=== PATIENT | female | born 1960 | race Hispanic/Latino ===

== ENCOUNTER → 2017-02-05 | Outpatient (CLI) | payer MEDICAID ==
[~2017-02-05] MED LIST: BUDE6HFA IH; CITA20TA4 PO; DCS100C PO; DICL75TA2 PO; FERR-57 PO; FISH1CAP15 PO; GBPN300C PO; GLIM4TAB PO; GLUC-165 PO; HYDR-34 PO; IBP600T1 PO; IBP800T PO; INSU100I17 SQ; LEVE1U SQ; LEVO500T78 PO; LISI-593 PO; MELO-198 PO; METH4TAB PO; MULT1TAB12 PO; OMEP20CA12 PO; OMEP20TA2 PO; PIOG30TA25 PO; SLMFT1E INH; SULF1TAB35 PO; SUMA100T2 PO; TRAM50TA2 PO; [UNRECOGNIZED DRUG - OTHER] PO
--- NOTE | 2017-02-08 13:23 | Diagnostic Imaging Report ---
Bilateral screening mammogram 2D views with tomosynthesis The current study was also evaluated with a Computer Aided Detection (CAD) system. Indication: Screening. No current complaints stated on the questionnaire. COMPARISON: 01/22/2016. Findings: The breasts are composed of scattered fibroglandular densities. Benign-appearing calcifications are seen. Allowing for technique and positional differences, no suspicious change is seen. IMPRESSION: No significant change. ACR BI-RADS Category 2: Benign findings. Result letter will be mailed to the patient. Note: At least 10% of breast cancer is not imaged by mammography. Dictated by: Dictated on workstation # [id number]
== END ==
LOC: RAD 14:30
PROVIDERS: ATTEND Nurse Practitioner Family
DX: Z12.31 Encounter for screening mammogram for malignant neoplasm of breast (principal)
CPT/HCPCS: 77067

== ENCOUNTER → 2017-03-19 | Outpatient (CLI) | payer OTHER ==
--- NOTE | 2017-03-19 11:27 | Diagnostic Imaging Report ---
INDICATION: Right elbow pain. TIME OF EXAM: 11:10 a.m. Two views of the right elbow were obtained. The alignment appears normal. No fractures are identified. No joint effusion is seen. There appears to be a well-corticated osseous density along the lateral aspect of the distal humerus, likely chronic. IMPRESSION: No acute abnormality is detected. Dictated by: Dictated on workstation # [id number]
--- NOTE | 2017-03-19 11:51 | Diagnostic Imaging Report ---
INDICATION: Chronic right knee pain. TIME OF EXAM: 11:13 AM FINDINGS: AP and lateral views of the right knee were obtained. There is medial and patellofemoral compartmental degenerative change with mild joint space narrowing and marginal spurring. There is some spurring of the tibial spines. No fracture, dislocation or effusion is seen. IMPRESSION: Degenerative changes. No acute bony abnormality is detected. Dictated by: Dictated on workstation # [id number]
== END ==
LOC: RAD 10:06
PROVIDERS: ATTEND Internal Medicine Infectious Disease
DX: Z02.71 Encounter for disability determination (principal); M17.11 Unilateral primary osteoarthritis, right knee; M25.521 Pain in right elbow
CPT/HCPCS: 73070; 73560

== ENCOUNTER → 2018-03-11 | Outpatient (CLI) | payer MEDICAID, OTHER ==
--- NOTE | 2018-03-11 14:45 | Diagnostic Imaging Report ---
INDICATION: Routine screening. COMPARISON: 02/05/2017 and 01/22/2016. TECHNIQUE: 2D and 3D bilateral screening mammography was performed with CAD. FINDINGS: Scattered fibroglandular densities are identified bilaterally. The fibronodular parenchymal pattern appears to be stable. There are benign appearing parenchymal and vascular calcifications bilaterally. No new mass or malignant appearing microcalcifications are seen. The axillae are unremarkable. IMPRESSION: No mammographic features suspicious for malignancy are identified. ACR BI-RADS Category 2: Benign findings. Result letter will be mailed to the patient. Note: At least 10% of breast cancer is not imaged by mammography. Dictated by: Dictated on workstation # [id number]
== END ==
LOC: RAD 11:36
PROVIDERS: ATTEND Family Medicine
DX: Z12.31 Encounter for screening mammogram for malignant neoplasm of breast (principal)
CPT/HCPCS: 77067

== ENCOUNTER → 2018-09-15 | Outpatient (CLI) | payer MEDICAID ==
--- NOTE | 2018-09-15 16:43 | Diagnostic Imaging Report ---
EXAM: US VENOUS LOWER EXT LT INDICATION: LEFT FOOT AND LEG SWOLLEN COMPARISON: None. TECHNIQUE: Duplex, harry-scale and color-flow imaging of the left lower extremity venous system was performed FINDINGS: The left common femoral vein, superficial femoral vein, profunda femoris, and popliteal veins are normal. These vessels show normal compressibility, color flow, and doppler augmentation. The deep calf veins demonstrate no distinct intraluminal thrombus where seen. IMPRESSION: Negative venous Doppler of the left lower extremity. Dictated by: Dictated on workstation # [id number]
== END ==
LOC: RAD 15:18
PROVIDERS: ATTEND Family Medicine
DX: M79.89 Other specified soft tissue disorders (principal)

== ENCOUNTER → 2018-10-18 | Outpatient (CLI) | payer MEDICAID ==
--- NOTE | 2018-10-18 14:34 | Diagnostic Imaging Report ---
PROCEDURE: CT abdomen and pelvis without contrast. TECHNIQUE: Multiple contiguous axial images were obtained through the abdomen and pelvis without the use of intravenous contrast. Auto Exposure Controls were utilized during the CT exam to meet ALARA standards for radiation dose reduction. INDICATION: Left lower quadrant pain. COMPARISON: There are no prior studies available for comparison. FINDINGS: The images through the pelvis show that there is diverticulosis of the sigmoid and descending colon, but there is no evidence for acute diverticulitis. There also appear to be a number of diverticula in the ascending colon, but there is no sign of diverticulitis in this region either. The appendix was not particularly well visualized, but there are no indirect signs of acute appendicitis. There is no pelvic mass or free fluid collection evident. The uterus is surgically absent. The urinary bladder is grossly unremarkable. There is a 3.8 cm defect in the anterior abdominal wall just to the right of midline at the level of the iliac crest. An 8.4 x 9.9 x 9.5 cm collection of the mesenteric fat has herniated through the defect into the subcutaneous fat. There is mild distortion of the subcutaneous fat in this area consistent with edema/inflammation. There is no mass or abscess visualized. There is no evidence for extension of the bowel into this defect, and there is no sign of obstruction of the bowel. There is a 3.1 x 4.2 x 6.5 cm soft tissue density associated with the hernia defect. This is of uncertain etiology but could be secondary to a small amount of fluid. If further evaluation is desired, then ultrasound should be considered. The liver, spleen, pancreas, adrenals, aorta, and inferior vena cava show no sign of an acute abnormality. There are a few minute nonobstructive calculi within both kidneys. The gallbladder is surgically absent. The stomach is not well distended and consequently difficult to assess. The lung bases are clear. The bone windows show no evidence for a fracture or for a destructive lesion. There is degenerative disc and bony disease at L5-S1. IMPRESSION: 1. There is a defect in the anterior abdominal wall just to the right of midline. A sizable portion of the mesenteric fat has herniated through this defect into the subcutaneous fat. There is mild edema/inflammation of the subcutaneous fat in this area, although there is no abscess identified. However, there may be a small fluid collection within the herniated fat. Additional considerations as above. 2. There is no evidence for obstruction of the bowel by the hernia. 3. There is no acute abnormality of the abdomen or pelvis noted otherwise. 4. There are nonobstructive calculi within both kidneys. Dictated by: Dictated on workstation # [id number]
== END ==
LOC: RAD 11:41
PROVIDERS: ATTEND Family Medicine
DX: N20.0 Calculus of kidney (principal); K42.9 Umbilical hernia without obstruction or gangrene; M47.817 Spondylosis without myelopathy or radiculopathy, lumbosacral region; M89.9 Disorder of bone, unspecified; K57.30 Diverticulosis of large intestine without perforation or abscess without bleeding; Z90.710 Acquired absence of both cervix and uterus; Z90.49 Acquired absence of other specified parts of digestive tract
CPT/HCPCS: 74176

== ENCOUNTER → 2018-10-21 | Outpatient (CLI) | payer MEDICAID ==
--- NOTE | 2018-10-21 18:43 | Diagnostic Imaging Report ---
PROCEDURE: US Abdomen, limited. TECHNIQUE: Multiple realtime grayscale images were obtained over the abdomen in various projections. INDICATION: Abdominal hernia, abdominal pain. FINDINGS: Some fluid tracks through and into the hernia sac in this patient with known fatty ventral abdominal wall hernia. No sonographically demonstrated herniation of viscus. The fluid component measuring 5.0 x 2[address] on 10/18/2018. The fluid element measured 6.5 x 3.1 cm, showing little if any interval change. IMPRESSION: Similar small-volume fluid within the caudal dependent component of the hernia sac in this patient with fatty ventral abdominal wall hernia. No demonstrated viscus herniation. Dictated by: Dictated on workstation # [id number]
== END ==
LOC: RAD 12:43
PROVIDERS: ATTEND Family Medicine
DX: K43.9 Ventral hernia without obstruction or gangrene (principal)
CPT/HCPCS: 76705

== ENCOUNTER 2018-11-24 09:09 | Outpatient (CLI) | payer MEDICAID ==
[~2018-11-24] VITALS: Ht 165.1 cm; Wt 115.1 kg
[2018-11-24 09:49] VITALS: BP 123/65
[2018-11-24 10:04] LABS: BASOPHILS % (AUTO) 0 % (0-10); EOSINOPHILS # (AUTO) 0.4 10^3/uL (0.0-0.3); EOSINOPHILS % (AUTO) 8 % (0-10); HEMATOCRIT 36 % (35-52); HEMOGLOBIN 11.5 G/DL (11.5-16.0); LYMPHOCYTES # (AUTO) 1.2 X 10^3 (1.0-4.0); LYMPHOCYTES % (AUTO) 22 % (12-44); MEAN CORPUSCULAR HEMOGLOBIN 25 PG (25-34); MEAN CORPUSCULAR HGB CONC 32 G/DL (32-36); MEAN CORPUSCULAR VOLUME 78 FL (80-99); MEAN PLATELET VOLUME 10.8 FL (7.4-10.4); MONOCYTES # (AUTO) 0.4 X 10^3 (0.0-1.0); MONOCYTES % (AUTO) 7 % (0-12); NEUTROPHILS # (AUTO) 3.4 X 10^3 (1.8-7.8); NEUTROPHILS % (AUTO) 63 % (42-75); PLATELET COUNT 255 10^3/uL (130-400); WHITE BLOOD COUNT 5.3 10^3/uL (4.3-11.0)
[2018-11-24] MEDS ORDERED: PIOG30TA71 PO (10:08)
[2018-11-24] MEDS ORDERED: LISI1TAB10 PO (10:08)
[2018-11-24] MEDS ORDERED: GLIM1TAB PO (10:08)
[2018-11-24] MEDS ORDERED: BUDE10.2 IH (10:08)
[2018-11-24] MEDS ORDERED: ASPI-586 PO (10:08)
== END 2018-11-24 09:45 | disposition home or self-care (01) ==
LOC: PREOP 09:09
PROVIDERS: ATTEND Surgery
DX: Z01.818 Encounter for other preprocedural examination (principal); K43.2 Incisional hernia without obstruction or gangrene
CPT/HCPCS: 36415; 85025; 87081

== ENCOUNTER 2018-12-01 08:50 | Day surgery (SDC) | payer MEDICAID ==
[2018-12-01] VITALS (12 sets, daily range): BP systolic 102–133; BP diastolic 36–74
[~2018-12-01] VITALS: Ht 165 cm; Wt 115.1 kg
[~2018-12-01 08:50] MED LIST changes: +ASPI-586 PO; +BUDE10.2 IH; +GLIM1TAB PO; +LISI1TAB10 PO; +PIOG30TA71 PO
[2018-12-01] MEDS ORDERED: BUP/EPI 0.5% 1:200,000 (SENSORCAINE) 30 ML VIAL ONE (09:54)
[2018-12-01] MEDS: LACTATED RINGERS 1,000 ML IV PRN ×2 (10:26→11:33)
[2018-12-01] MEDS ORDERED: MIDAZOLAM 2 MG/2 ML (VERSED) VIAL ONE (10:29)
[2018-12-01] MEDS ORDERED: fentaNYL INJECTION 100 MCG/2 ML AMP ONE (10:29)
[2018-12-01] MEDS ORDERED: ceFAZolin 2 GM IV Premixed 50 ML ONE (10:34)
[2018-12-01] MEDS ORDERED: proPOfol 200 MG/20 ML (DIPRIVAN) VIAL IV ONE (10:34)
[2018-12-01] MEDS ORDERED: LIDOCAINE PF 2% 5 ML (XYLOCAINE) VIAL ONE (10:34)
[2018-12-01] MEDS ORDERED: ROCURONIUM 10 MG/ML 5 ML SYRINGE IV ONE (10:34)
[2018-12-01] MEDS ORDERED: SEVOFLURANE (ULTANE) 15 ML INHAL SOLN ONE (10:34)
--- NOTE | 2018-12-01 10:36 | Progress Note-Pre Operative ---
Pre-Operative Progress Note H&P Reviewed The H&P was reviewed, patient examined and no changes noted. Date Seen by Provider: Dec 01, 2018 Time Seen by Provider: 10:35 Date H&P Reviewed: Dec 01, 2018 Time H&P Reviewed: 10:35 Pre-Operative Diagnosis: INCISIONAL HERNIA DAVID JAMISON DO Dec 01, 2018 10:36
[2018-12-01] MEDS ORDERED: ONDANSETRON 4 MG/2 ML (SDV) Z0FRAN ONE (10:46)
[2018-12-01] MEDS ORDERED: PHENYLEPHRINE 100 MCG/ML 10 ML (ANESTHESIA) SYR ONE (11:26)
[2018-12-01] MEDS ORDERED: DESFLURANE (SUPRANE) 15 ML INHAL SOLN ONE ×3 (12:04→12:34)
[2018-12-01] MEDS ORDERED: GLYCOPYRROLATE 0.2 MG/ML (ROBINUL) 2 ML VIAL ONE (12:33)
[2018-12-01] MEDS ORDERED: NEOSTIGMINE 3 MG/3 ML VIAL ONE (12:33)
[2018-12-01] MEDS ORDERED: morphine INJ 10 MG/ML 1ML (SYR OR VIAL) ONE (12:59)
[2018-12-01] MEDS ORDERED: HYDROmorphone 2 MG/ML VIAL (DILAUDID) ONE (12:59)
[2018-12-01] MEDS ORDERED: morphine INJ 10 MG/ML 1ML (SYR OR VIAL) IVP ONE (13:00)
[2018-12-01] MEDS ORDERED: ONDANSETRON 4 MG/2 ML (SDV) Z0FRAN IVP PRN (13:00)
[2018-12-01] MEDS ORDERED: MEPERIDINE (DEMEROL) INJ 50 MG/ML IVP ONE (13:00)
[2018-12-01] MEDS ORDERED: HYDROmorphone 2 MG/ML VIAL (DILAUDID) IV ONE (13:00)
[2018-12-01] MEDS ORDERED: PROMETHAZINE INJ 25 MG/ML (PHENERGAN) AMP IVP ONE (13:00)
--- NOTE | 2018-12-01 13:18 | Progress Note-Post Operative ---
Post-Operative Progess Note Surgeon (s)/Supervising Deputy (s) Surgeon DAVID JAMISON DO Supervising Deputy: Dr. Conley Pre-Operative Diagnosis INCISIONAL HERNIA Post-Operative Diagnosis incarcerated incisional hernia Procedure & Operative Findings Date of Procedure 12/01/18 Procedure Performed/Findings lap incarcerated incisional hernia repair c 6" ventralight mesh with open closure of defect. Anesthesia Type gen Estimated Blood Loss Estimated blood loss (mL): minimal Specimens/Packing Specimens Removed hernia contents DAVID JAMISON DO Dec 01, 2018 13:18
[2018-12-01] MEDS ORDERED: ACHD5005 PO (13:20)
[2018-12-01] MEDS ORDERED: DOCU-143 PO (13:20)
--- NOTE | 2018-12-01 13:21 | Discharge Inst-Simple/Standard ---
Discharge Inst-Standard Discharge Medications New, Converted or Re-Newed RX: RX on Chart Patient Instructions/Follow Up Plan of Care/Instructions/FU: 2-3 weeks Karol. Remove bandages in 48 hours. Keep clean and dry. Activity as Tolerated: No Discharge Diet: Regular Diet Other Inst to Patient Follow up Appt: Make appointment for 2-3 week. Instructions: No lifting greater than 10 pounds. No strenuous activity. May shower in 24 hours, no tub bath or soaking. Use incentive spirometer at home as directed. No Smoking Skin/Wound Care: May remove bandages in 48 hours. Symptoms to Report: Appetite Changes, Extremity Discoloration, Numbness/Tingling, Swelling Increas ed, Bleeding Excessive, Eyesight Changes, Pain Increased, Urine Color Change, Constipation(Persistent), Fever over 101 degree F, Pain/Pressure in chest, Urinating Difficulty, Cough Up/Vomit Blood, Heart Beat Irreg/Pounding, Pain/Pressure in jaw, Vaginal Bleeding Increase, Cramps in feet or legs, Lightheadedness, Pain/Pressure in shoulder, Diarrhea(Persistent), Memory Changes Suddenly, Questions/Concerns, Weight gain consecutive days, Dizziness/Fainting, Nausea/Vomiting, Shortness of Breath, Weight gain over 2 pounds If questions or concerns contact your physician Or seek help at emergency department. DAVID JAMISON DO Dec 01, 2018 13:21
[2018-12-01] MEDS ORDERED: HYDROcodone/APAP 5 MG/325 MG (LORTAB) TAB PO ONE ×2 (14:30→15:30)
[2018-12-01] MEDS ORDERED: HYDROcodone/APAP 5 MG/325 MG (LORTAB) TAB ONE (14:37)
--- NOTE | 2018-12-01 14:41 | Anesthesia-General Post-Op ---
General Patient Condition Mental Status/LOC: Same as Preop Cardiovascular: Satisfactory Nausea/Vomiting: Absent Respiratory: Satisfactory Pain: Controlled Complications: Absent Post Op Complications Complications None Follow Up Care/Instructions Patient Instructions None needed. Anesthesia/Patient Condition Patient Condition Patient is doing well, no complaints, stable vital signs, no apparent adverse anesthesia problems. ALEX CABELLO DO Dec 01, 2018 14:40
[2018-12-01] MEDS ORDERED: ceFAZolin 2 GM IV Premixed 50 ML IV ONE (15:45)
--- NOTE | 2018-12-01 23:55 | OPERATIVE REPORT ---
DATE OF SERVICE: 12/01/2018 PREOPERATIVE DIAGNOSIS: Incisional hernia. POSTOPERATIVE DIAGNOSIS: Incarcerated incisional hernia of omentum and colon. PROCEDURE: Laparoscopic incarcerated incisional hernia repair with Echo Ventralight 6-inch mesh with open closure of defect. SURGEON: David Roberson DO TRIMMER BUFFING WHEEL: Dr. Conley, assisted in retraction, dissection and closure. ESTIMATED BLOOD LOSS: Minimal. COMPLICATIONS: None. INDICATIONS: The patient is a 58-year-old female with incisional hernia. She would like to have it repaired. She was discussed risks and benefits of procedure and wished to proceed with procedure. Consent was signed on the chart. DESCRIPTION OF PROCEDURE: The patient was taken to the operating suite. She was prepped and draped in sterile fashion. Surgical pause was performed. Local anesthetic was infiltrated in the left upper quadrant, incision was made. Cautery was used to dissect down through the abdominal wall until the abdomen was able to be entered and a balloon trocar was inserted into the abdomen. Pneumoperitoneum was achieved. The scope was inserted and under direct visualization of the laparoscope, a 5 mm trocar was placed in the right lower quadrant and one 5 mm trocar was placed in the left lower quadrant. Large hernia defect containing omentum and colon, which was then began to be dissected out the hernia contents. LigaSure was used to assist as well. Once the hernia contents were reduced, the falciform ligament was also taken down as well. At this time, the defect was larger and it felt best to close making through a small incision, so a small incision was made over the defect and the hernia defect was then closed using 1-0 looped PDS. An Echo Ventralight mesh was then inserted into the abdomen and grasped through the incision with a Josias-Haersh and the balloon was inflated. A SecureStrap Tacker was then used to tack the mesh circumferentially. The balloon was removed. An inner crown was created as well. Adequate coverage was present. The abdomen was then irrigated and suctioned. The 12 mm fascial defect was then closed using 0 Vicryl with a Josias-Haresh. The abdomen was then desufflated, the trocars removed. Skin was then closed using alison. The area was then washed and dried and sterile bandages were applied. The patient tolerated procedure well without any complications. She was taken to recovery room in stable condition. Job ID: [id number] DocumentID: [id number] Dictated Date: 12/01/2018 18:38:37 Personnel Monitor Date: 12/01/2018 23:55:28 Dictated By: DAVID ROBERSON DO
== END 2018-12-01 16:40 | disposition home or self-care (01) ==
LOC: SDC 08:50
PROVIDERS: ATTEND Surgery
DX: K43.0 Incisional hernia with obstruction, without gangrene (principal); I10 Essential (primary) hypertension; J45.909 Unspecified asthma, uncomplicated; E78.5 Hyperlipidemia, unspecified; E11.9 Type 2 diabetes mellitus without complications; E66.01 Morbid (severe) obesity due to excess calories; F32.9 Major depressive disorder, single episode, unspecified; Z68.41 Body mass index [BMI] 40.0-44.9, adult; Z79.82 Long term (current) use of aspirin; Z79.891 Long term (current) use of opiate analgesic; Z79.899 Other long term (current) drug therapy; Z90.710 Acquired absence of both cervix and uterus; Z90.49 Acquired absence of other specified parts of digestive tract; Z88.8 Allergy status to other drugs, medicaments and biological substances; Z82.49 Family history of ischemic heart disease and other diseases of the circulatory system; Z83.3 Family history of diabetes mellitus; Z83.6 Family history of other diseases of the respiratory system
CPT/HCPCS: 82962; 94664

== ENCOUNTER → 2019-03-27 | Outpatient (CLI) | payer MEDICAID ==
[~2019-03-27] MED LIST changes: +ACHD5005 PO; +DOCU-143 PO; -GLIM1TAB PO; +GLIM1TAB2 PO; -LISI1TAB10 PO; +LISI1TAB26 PO
--- NOTE | 2019-03-28 12:18 | Diagnostic Imaging Report ---
INDICATION: Routine screening. COMPARISON: Comparison is made with prior mammograms from 03/11/2018 and 02/05/2017. TECHNIQUE: 2-D and 3-D bilateral screening mammography was performed. The current study was also evaluated with a Computer Aided Detection (CAD) system. 3-D tomosynthesis was also performed and reviewed. FINDINGS: Scattered fibroglandular densities are identified bilaterally. There is a fibronodular parenchymal pattern. There are benign calcifications scattered throughout both breasts. No dominant mass or malignant-appearing microcalcifications are seen. Axillae are unremarkable. IMPRESSION: No mammographic features suspicious for malignancy are identified. ACR BI-RADS Category 2: Benign findings. Result letter will be mailed to the patient. Note: At least 10% of breast cancer is not imaged by mammography. Dictated by: Dictated on workstation # [id number]
== END ==
LOC: RAD 15:47
PROVIDERS: ATTEND Family Medicine
DX: Z12.31 Encounter for screening mammogram for malignant neoplasm of breast (principal)
CPT/HCPCS: 77067

== ENCOUNTER → 2020-04-03 | Outpatient (CLI) | payer MEDICAID ==
[~2020-04-03] MED LIST changes: -GLIM1TAB2 PO; +GLIM1TAB4 PO
--- NOTE | 2020-04-03 11:51 | Diagnostic Imaging Report ---
INDICATION: Routine screening. Comparison is made prior mammogram from 03/27/2019 and 03/11/2018. 2-D and 3-D bilateral screening mammography was performed with CAD. Scattered fibroglandular densities are identified bilaterally. Fibronodular parenchymal pattern is again noted. There are benign calcifications in both breasts. Overall pattern appears to be stable. No spiculated mass or malignant appearing microcalcifications are seen. Axillae are unremarkable. IMPRESSION: BI-RADS Category 2 No mammographic features suspicious for malignancy are identified. ACR BI-RADS Category 2: Benign findings. Result letter will be mailed to the patient. Note: At least 10% of breast cancer is not imaged by mammography. Dictated by: Dictated on workstation # [id number]
== END ==
LOC: RAD 10:21
PROVIDERS: ATTEND Family Medicine
DX: Z12.31 Encounter for screening mammogram for malignant neoplasm of breast (principal)
CPT/HCPCS: 77063; 77067

== ENCOUNTER → 2021-07-18 | Outpatient (CLI) | payer MEDICAID ==
[~2021-07-18] MED LIST changes: -LISI1TAB26 PO; +LISI1TAB48 PO
== END ==
LOC: RAD 14:26
PROVIDERS: ATTEND Family Medicine
DX: Z12.31 Encounter for screening mammogram for malignant neoplasm of breast (principal)
CPT/HCPCS: 77063; 77067

== ENCOUNTER 2022-06-04 13:11 | Emergency (ER) | payer MEDICAID ==
[~2022-06-04] VITALS: Ht 162 cm; Wt 108.0 kg
--- NOTE | 2022-06-04 13:31 | ED Chest Pain ---
General Chief Complaint: Chest Pain Stated Complaint: CHEST PAINS Nursing Triage Note: PT CO OF CHEST PAIN STARTED AT 1000. PT DENIES C/P AT THIS X BUT WAS 9/10 EARLIER. PT DENIES SOA, DIAPHORISIS OR N/V. Source: patient Exam Limitations: no limitations History of Present Illness Date Seen by Provider: Jun 04, 2022 Time Seen by Provider: 13:31 Initial Comments Patient is a 62-year-old female who presents to the emergency department today with a chief complaint of heart racing/palpitations. Patient states that she was drinking some chocolate milk at home and noticed that her heart started racing. She denied any pain associated with the palpitations. She also denies shortness of breath, diaphoresis or nausea. She states it lasted about an hour and a half, [facility] She has had episodes similar in the past but they have never lasted quite as long. She does not usually drink chocolate milk maybe once a month. She does have a history of high blood pressure, high cholesterol and diabetes. She has never had any type of cardiac evaluation. Non-smoker. She denies any recent fevers, chills, cough, congestion. She had an episode of dizziness last night before bed. Took some aspirin and went to sleep and woke up no longer dizzy. She denies any problems with bowel or bladder recently. No swelling in her legs. She admits that she does not check her blood sugars routinely as she is currently out of strips and has not made it to the pharmacy to last picker new ones. She sees Ashleigh Ag APRN at [facility]. At this time completely asymptomatic. Timing/Duration: 1-3 hours Severity/Quality: moderate Prior CP/Workup: no prior chest pain, no prior cardiac workup ASA po LINING MACHINE OPERATOR: No NTG SL LINING MACHINE OPERATOR: No Associated Symptoms: denies symptoms Allergies and Home Medications Allergies Coded Allergies: metformin HCl (Verified Allergy, Unknown, 05/01/11) Patient Home Medication List Home Medication List Reviewed: Yes Aspirin (Aspir 81) 81 Mg Tablet.dr, 81 MG PO DAILY, (Reported) Entered as Reported by: VERONICA SINGH on 11/24/18 1008 Budesonide/Formoterol Fumarate (Symbicort 160-4.5 Mcg Inhaler) 10.2 Gm Hfa.aer.ad, 2 PUFF IH BID, (Reported) Entered as Reported by: VERONICA SINGH on 11/24/18 100 Docusate Sodium (Colace) 100 Mg Capsule, 100 MG PO BID Prescribed by: DAVID JAMISON on 12/01/18 1320 Glimepiride (Glimepiride) 1 Mg Tablet, 1 MG PO DAILY, (Reported) Entered as Reported by: VERONICA SINGH on 11/24/18 100 Hydrocodone Bit/Acetaminophen (Lortab 5 Mg Tablet) 1 Tab Tab, 1-2 TAB PO Q6H PRN for PAIN-MODERATE Prescribed by: DAVID JAMISON on 12/01/18 1320 Lisinopril/Hydrochlorothiazide (Lisinopril-Hctz 20-25 mg Tab) 1 Each Tablet, 1 EACH PO DAILY, (Reported) Entered as Reported by: VERONICA SINGH on 11/24/181007 Pioglitazone HCl (Pioglitazone HCl) 30 Mg Tablet, 30 MG PO DAILY, (Reported) Entered as Reported by: VERONICA SINGH on 11/24/181007 Review of Systems Review of Systems Constitutional: see HPI EENTM: No Symptoms Reported Respiratory: No Symptoms Reported Cardiovascular: Palpitations Gastrointestinal: No Symptoms Reported Genitourinary: No Symptoms Reported Musculoskeletal: other (Arthritis pain bilateral knee) Skin: no symptoms reported Psychiatric/Neurological: Other ("Dizziness" last night) All Other Systems Reviewed Negative Unless Noted: Yes Past Fpwmcba-Jovhdg-Esxekp Hx Seasonal Allergies Seasonal Allergies: No Past Medical History Surgeries: Yes Gallbladder, Hysterectomy, Tubal Ligation Respiratory: Yes Asthma Cardiac: Yes High Cholesterol, Hypertension Neurological: No Reproductive Disorders: Yes (UTERINE MASS) Sexually Transmitted Disease: No Genitourinary: No Gastrointestinal: Yes Abdominal Hernia Musculoskeletal: Yes (ARTHRITIS) Endocrine: Yes Diabetes, Non-Insulin dep HEENT: No Cancer: No Psychosocial: No Integumentary: No Blood Disorders: No Physical Exam Vital Signs Vital Signs - First Documented 06/04/22 13:20 Pulse 109 Resp 18 B/P (MAP) 157/95 (115) Pulse Ox 100 O2 Delivery Room Air Capillary Refill : Less Than 3 Seconds Height, Weight, BMI Height: '" Weight: 218lbs. oz. 98.028835ku; 41.00 BMI Method: General Appearance: No Apparent Distress, WD/WN, Obese HEENT: PERRL/EOMI Neck: Normal Inspection Respiratory: Lungs Clear, Normal Breath Sounds, No Accessory Muscle Use, No Respiratory Distress Cardiovascular: Regular Rate, Rhythm, Normal Peripheral Pulses (2+ radial bilateral) Gastrointestinal: Normal Bowel Sounds, Non Tender, Soft Extremity: Normal Inspection, No Pedal Edema Neurologic/Psychiatric: Alert, Oriented x3, No Motor/Sensory Deficits, Normal Mood/Affect, construction lineman II-XII Norm as Tested Skin: Normal Color, Warm/Dry Progress/Results/Core Measures Results/Orders Lab Results Laboratory Tests Test 06/04/22 13:37 Range/Units White Blood Count 8.7 4.3-11.0 10^3/uL Red Blood Count 4.80 3.80-5.11 10^6/uL Hemoglobin 12.9 11.5-16.0 g/dL Hematocrit 40 35-52 % Mean Corpuscular Volume 83 80-99 fL Mean Corpuscular Hemoglobin 27 25-34 pg Mean Corpuscular Hemoglobin Concent 33 32-36 g/dL Red Cell Distribution Width 14.7 H 10.0-14.5 % Platelet Count 219 130-400 10^3/uL Mean Platelet Volume 11.0 9.0-12.2 fL Immature Granulocyte % (Auto) 1 % Neutrophils (%) (Auto) 65 42-75 % Lymphocytes (%) (Auto) 20 12-44 % Monocytes (%) (Auto) 10 0-12 % Eosinophils (%) (Auto) 4 0-10 % Basophils (%) (Auto) 1 0-10 % Neutrophils # (Auto) 5.7 1.8-7.8 10^3/uL Lymphocytes # (Auto) 1.7 1.0-4.0 10^3/uL Monocytes # (Auto) 0.9 0.0-1.0 10^3/uL Eosinophils # (Auto) 0.3 0.0-0.3 10^3/uL Basophils # (Auto) 0.1 0.0-0.1 10^3/uL Immature Granulocyte # (Auto) 0.1 0.0-0.1 10^3/uL Sodium Level 142 135-145 MMOL/L Potassium Level 4.2 3.6-5.0 MMOL/L Chloride Level 107 98-107 MMOL/L Carbon Dioxide Level 21 21-32 MMOL/L Anion Gap 14 5-14 MMOL/L Blood Urea Nitrogen 25 H 7-18 MG/DL Creatinine 1.19 0.60-1.30 MG/DL Estimat Glomerular Filtration Rate 51 BUN/Creatinine Ratio 21 Glucose Level 66 L 70-105 MG/DL Calcium Level 9.7 8.5-10.1 MG/DL Corrected Calcium 9.5 8.5-10.1 MG/DL Total Bilirubin 0.3 0.1-1.0 MG/DL Aspartate Amino Transf (AST/SGOT) 26 5-34 U/L Alanine Aminotransferase (ALT/SGPT) 31 0-55 U/L Alkaline Phosphatase 106 40-136 U/L Total Protein 8.0 6.4-8.2 GM/DL Albumin 4.2 3.2-4.5 GM/DL My Orders Orders - ANGÉLICA PACHECO MD Ekg Tracing (06/04/22 13:34) Ed Iv/Invasive Line Start (06/04/22 13:53) Cbc With Automated Diff (06/04/22 13:53) Comprehensive Metabolic Panel (06/04/22 13:53) Chest 1 View, Ap/Pa Only (06/04/22 13:53) Vital Signs/I&O 06/04/22 06/04/22 13:20 15:25 Pulse 109 79 Resp 18 12 B/P (MAP) 157/95 (115) 144/72 Pulse Ox 100 97 O2 Delivery Room Air Room Air Blood Pressure Mean: 115 Progress Progress Note : Time: 15:00 Progress Note Patient seen and examined by me. Evaluation today includes physical exam, EKG, single view chest x-ray, CBC, Chem-12. Pertinent physical exam findings, 62-year-old obese female, no acute distress. Video lead former used to facilitate history and physical. Patient is alert and oriented. Heart is regular, not tachycardic. Lungs are clear. Abdomen is soft. No lower extremity edema. No focal neurologic deficits. Vital signs are stable. Differential diagnosis based on history and physical exam, arrhythmia /intermittent A-fib/SVT, dehydration. Labs, EKG and chest x-ray independently interpreted by me. CBC is normal, Chem- 12 is normal other than slightly low glucose at 66. Chest x-ray is negative, EKG shows nonspecific findings with Q waves inferiorly and poor R wave progression over the precordium. Her vital signs have remained stable. Consideration for troponin and BNP however the patient did not have chest pain or any anginal type equivalents. Risk factors for coronary artery disease include obesity, hypertension and diabetes. Low clinical concern for acute coronary syndrome as the patient only complained about palpitations that lasted for about an hour to an hour and a half. Clinically she does not appear dehydrated. She has been in no acute distress with no return of symptoms. It is possible that she has had A-fib versus possible SVT. Recommend close follow- up with her primary care provider at [facility]. Return precautions provided. Both written and verbal instructions were given with the help of video lead former. Patient is comfortable with plan of care. All questions were sought and answered. Initial ECG Impression Date: Jun 04, 2022 Initial ECG Impression Time: 13:40 Initial ECG Rate: 93 Initial ECG Rhythm: Normal Sinus Initial ECG Intervals: Normal Comment Q waves noted inferiorly, poor R wave progression over the precordium. Biphasic T waves in V1, left atrial enlargement. No ST segment elevation or depression. No ectopy. Diagnostic Imaging Diagonstic Imaging: Xray Comments [facility]. [place], [place] NAME: PETTY RAZO [facility] REC#: [id number] PT STATUS: REG ER : 1960 PHYSICIAN: ANGÉLICA PACHECO MD ADMIT DATE: 06/04/22/ER Draft Date of Exam:06/04/22 CHEST 1 VIEW, AP/PA ONLY EXAMINATION: Chest 1 view HISTORY: palpitations COMPARISON: None available. FINDINGS: Heart size and pulmonary vasculature are normal. The lungs are clear without consolidation, pleural effusion, or pneumothorax. The osseous structures are intact. IMPRESSION: 1. No acute radiographic abnormality in the chest. Dictated on workstation # [id number] Dict: 06/04/22 1416 Trans: 06/04/22 1418 [id number] Interpreted by: FREDDIE NG DO Electronically signed by: Departure Impression Primary Impression: Palpitations Disposition: 01 HOME, SELF-CARE Condition: Stable Departure-Patient Inst. Decision time for Depature: 15:13 Referrals: [facility] [place]/CINDY MORALES MD Patient Instructions: Palpitations (DC) Add. Discharge Instructions: Continue your daily medications as prescribed. Please call the clinic tomorrow and schedule an appointment next week. I have also given you contact information for the heart doctor on-call, Dr. Ontiveros. You may talk to Ashleigh at the clinic about a heart monitor that you wear at home and then take back to Dr. Ontiveros's office when complete. This monitor would help us know if your heart is in the correct rhythm when it is beating fast. If you have any return of rapid heartbeat especially with pain in your chest, nausea, shortness of breath or sweating please come back to the emergency department for reevaluation. Contine con miguel medicamentos diarios segn lo prescrito. Por favor llame a la clnica maana y programe angela ruel la prxima semana. Tambin le he dado la informacin de contacto del cardilogo de turno, el Dr. Ontiveros. Puede hablar con Ashleigh en la clnica sobre un monitor cardaco que usar en casa y luego lo llevar al consultorio de anuja Ontiveros cuando est completo. Tala monitor nos ayudara a saber si tu corazn est en el ritmo correcto cuando late rpido. Si vuelve a tener latidos cardacos rpidos, especialmente con dolor en el pecho, nuseas, dificultad para respirar o sudoracin, regrese al departamento de emergencias para angela reevaluacin. ANGÉLICA PACHECO MD Jun 04, 2022 13:31
[2022-06-04 14:00] LABS: BASOPHILS # (AUTO) 0.1 10^3/uL (0.0-0.1); BASOPHILS % (AUTO) 1 % (0-10); EOSINOPHILS # (AUTO) 0.3 10^3/uL (0.0-0.3); EOSINOPHILS % (AUTO) 4 % (0-10); HEMATOCRIT 40 % (35-52); HEMOGLOBIN 12.9 g/dL (11.5-16.0); LYMPHOCYTES # (AUTO) 1.7 10^3/uL (1.0-4.0); LYMPHOCYTES % (AUTO) 20 % (12-44); MEAN CORPUSCULAR HEMOGLOBIN 27 pg (25-34); MEAN CORPUSCULAR HGB CONC 33 g/dL (32-36); MEAN CORPUSCULAR VOLUME 83 fL (80-99); MONOCYTES # (AUTO) 0.9 10^3/uL (0.0-1.0); MONOCYTES % (AUTO) 10 % (0-12); NEUTROPHILS # (AUTO) 5.7 10^3/uL (1.8-7.8); NEUTROPHILS % (AUTO) 65 % (42-75); PLATELET COUNT 219 10^3/uL (130-400); WHITE BLOOD COUNT 8.7 10^3/uL (4.3-11.0)
[2022-06-04 14:04] LABS: ALBUMIN 4.2 GM/DL (3.2-4.5); POTASSIUM 4.2 MMOL/L (3.6-5.0)
[2022-06-04 14:06] LABS: CALCIUM 9.7 MG/DL (8.5-10.1)
[2022-06-04 14:09] LABS: BILIRUBIN,TOTAL 0.3 MG/DL (0.1-1.0)
[2022-06-04 14:11] LABS: CREATININE SERUM 1.19 MG/DL (0.60-1.30)
--- NOTE | 2022-06-04 14:18 | Diagnostic Imaging Report ---
EXAMINATION: Chest 1 view HISTORY: palpitations COMPARISON: None available. FINDINGS: Heart size and pulmonary vasculature are normal. The lungs are clear without consolidation, pleural effusion, or pneumothorax. The osseous structures are intact. IMPRESSION: 1. No acute radiographic abnormality in the chest. Dictated by: Dictated on workstation # [id number]
[2022-06-04 15:25] VITALS: BP 144/72
== END 2022-06-04 15:25 | disposition home or self-care (01) ==
LOC: EDUNIT# 13:11 → ER 13:13
DX: R00.2 Palpitations (principal); E66.9 Obesity, unspecified; E11.9 Type 2 diabetes mellitus without complications; Z68.41 Body mass index [BMI] 40.0-44.9, adult
CPT/HCPCS: 36415; 71045; 80053; 85025; 93005

== ENCOUNTER 2022-06-19 14:33 | Emergency (ER) | payer MEDICAID ==
[~2022-06-19] VITALS: Ht 154 cm; Wt 106.0 kg
--- NOTE | 2022-06-19 14:53 | ED Cardiac General ---
History of Present Illness General Chief Complaint: Cardiac/General Problems Stated Complaint: ELEVATED HEARTBEAT | Nursing Triage Note: ARRIVED VIA AMB WITH COMPLAINTS OF PALPITATIONS AND CHEST PAIN STARTING AT 1100 TODAY. Source: patient Exam Limitations: no limitations History of Present Illness Date Seen by Provider: Jun 19, 2022 Time Seen by Provider: 14:53 Initial Comments Patient is a 62-year-old [place]-speaking lady who came in with a staff member from [facility] chief complaint left-sided chest pain, palpitations. Reportedly the patient called the clinic at about 130 stating that she was having pain and palpitations and had no ride to the clinic. Arra ngements were made for a care worker to bring her. Patient states her pain is improved at presentation through the use of this staff member who speaks [place]. She no longer feels palpitations. Heart rate is noted to be about 91. Sinus rhythm. Patient has had recent ER visit within the last 3 weeks for similar symptoms. Apparently she has not had any follow-up with cardiology or her primary provider at [facility]. Patient denies sweating, nausea. She is not short of breath. She has no known history of coronary artery disease. She is a diabetic. Does not check her sugars regularly at home. Denies recent fevers, chills, cough or congestion. No lower extremity swelling. No problems with bowel or bladder. She states she has not had an ything to eat today because she has not had an appetite. She has not had anything to drink either. On arrival, looks well, smiling, nontoxic in appearance. Timing/Duration: 1-3 hours Severity: moderate Location: central Activities at Onset: none NTG SL LATEX FOAM WORKER: No ASA po LATEX FOAM WORKER: No Associated Systoms: Malaise, Other (Palpitations) Allergies and Home Medications Allergies Coded Allergies: metformin HCl (Verified Allergy, Unknown, 05/01/11) Patient Home Medication List Home Medication List Reviewed: Yes Aspirin (Aspir 81) 81 Mg Tablet.dr, 81 MG PO DAILY, (Reported) Entered as Reported by: VERONICA SINGH on 11/24/18 1008 Budesonide/Formoterol Fumarate (Symbicort 160-4.5 Mcg Inhaler) 10.2 Gm Hfa.aer.ad, 2 PUFF IH BID, (Reported) Entered as Reported by: VERONICA SINGH on 11/24/18 1008 Docusate Sodium (Colace) 100 Mg Capsule, 100 MG PO BID Prescribed by: DAVID JAMISON on 12/01/18 1320 Glimepiride (Glimepiride) 1 Mg Tablet, 1 MG PO DAILY, (Reported) Entered as Reported by: VERONICA SINGH on 11/24/18 100 Hydrocodone Bit/Acetaminophen (Lortab 5 Mg Tablet) 1 Tab Tab, 1-2 TAB PO Q6H PRN for PAIN-MODERATE Prescribed by: DAVID JAMISON on 12/01/18 1320 Lisinopril/Hydrochlorothiazide (Lisinopril-Hctz 20-25 mg Tab) 1 Each Tablet, 1 EACH PO DAILY, (Reported) Entered as Reported by: VERONICA SINGH on 11/24/18 100 Pioglitazone HCl (Pioglitazone HCl) 30 Mg Tablet, 30 MG PO DAILY, (Reported) Entered as Reported by: VERONICA SINGH on 11/24/18 100 Review of Systems Review of Systems Constitutional: see HPI EENTM: No Symptoms Reported Respiratory: No Symptoms Reported Cardiovascular: Chest Pain, Palpitations Gastrointestinal: No Symptoms Reported Genitourinary: No Symptoms Reported Musculoskeletal: no symptoms reported Skin: no symptoms reported Psychiatric/Neurological: Anxiety All Other Systems Reviewed Negative Unless Noted: Yes Past Veojjwu-Ddwvcs-Cobouw Hx Patient Social History Tobacco Use?: No Substance use?: No Alcohol Use?: No Immunizations Up To Date First/Initial COVID19 Vaccinat: YES Second COVID19 Vaccination Griffin: UNKNOWN COVID19 Vaccine Editor Trade Journal: [place] Seasonal Allergies Seasonal Allergies: No Past Medical History Surgery/Hospitalization HX: DIABETES, HTN Surgeries: Yes Gallbladder, Hysterectomy, Tubal Ligation Respiratory: Yes Asthma Cardiac: Yes High Cholesterol, Hypertension Neurological: No Reproductive Disorders: Yes (UTERINE MASS) Sexually Transmitted Disease: No Genitourinary: No Gastrointestinal: Yes Abdominal Hernia Musculoskeletal: Yes (ARTHRITIS) Endocrine: Yes Diabetes, Non-Insulin dep HEENT: No Cancer: No Psychosocial: No Integumentary: No Blood Disorders: No Physical Exam Vital Signs Vital Signs - First Documented 06/19/22 14:40 Temp 37.0 Pulse 120 Resp 16 B/P (MAP) 149/79 (102) Pulse Ox 97 Capillary Refill : Less Than 3 Seconds Height, Weight, BMI Height: '" Weight: 218lbs. oz. 98.717992ef; 44.00 BMI Method: General Appearance: No Apparent Distress, WD/WN, Obese HEENT: PERRL/EOMI, Moist Mucous Membranes Neck: Normal Inspection, Supple Respiratory: Lungs Clear, Normal Breath Sounds, No Accessory Muscle Use, No Respiratory Distress Cardiovascular: Regular Rate, Rhythm, Tachycardia (90's) Gastrointestinal: Non Tender, Soft Extremity: Normal Capillary Refill, Normal Inspection, Normal Range of Motion, Non Tender, No Calf Tenderness, No Pedal Edema Neurologic/Psychiatric: Alert, Oriented x3, No Motor/Sensory Deficits, Normal Mood/Affect, boilermaking supervisor II-XII Norm as Tested Skin: Normal Color, Warm/Dry Progress/Results/Core Measures Results/Orders Lab Results Laboratory Tests Test 06/19/22 14:53 06/19/22 16:58 Range/Units White Blood Count 6.2 4.3-11.0 10^3/uL Red Blood Count 4.74 3.80-5.11 10^6/uL Hemoglobin 12.7 11.5-16.0 g/dL Hematocrit 39 35-52 % Mean Corpuscular Volume 82 80-99 fL Mean Corpuscular Hemoglobin 27 25-34 pg Mean Corpuscular Hemoglobin Concent 33 32-36 g/dL Red Cell Distribution Width 14.4 10.0-14.5 % Platelet Count 218 130-400 10^3/uL Mean Platelet Volume 10.9 9.0-12.2 fL Immature Granulocyte % (Auto) 2 % Neutrophils (%) (Auto) 86 H 42-75 % Lymphocytes (%) (Auto) 7 L 12-44 % Monocytes (%) (Auto) 4 0-12 % Eosinophils (%) (Auto) 2 0-10 % Basophils (%) (Auto) 0 0-10 % Neutrophils # (Auto) 5.3 1.8-7.8 10^3/uL Lymphocytes # (Auto) 0.4 L 1.0-4.0 10^3/uL Monocytes # (Auto) 0.2 0.0-1.0 10^3/uL Eosinophils # (Auto) 0.1 0.0-0.3 10^3/uL Basophils # (Auto) 0.0 0.0-0.1 10^3/uL Immature Granulocyte # (Auto) 0.1 0.0-0.1 10^3/uL Prothrombin Time 12.5 12.2-14.7 SEC INR Comment 0.9 0.8-1.4 Activated Partial Thromboplast Time 32 24-35 SEC Sodium Level 138 135-145 MMOL/L Potassium Level 4.4 3.6-5.0 MMOL/L Chloride Level 106 98-107 MMOL/L Carbon Dioxide Level 20 L 21-32 MMOL/L Anion Gap 12 5-14 MMOL/L Blood Urea Nitrogen 26 H 7-18 MG/DL Creatinine 1.13 0.60-1.30 MG/DL Estimat Glomerular Filtration Rate 55 BUN/Creatinine Ratio 23 Glucose Level 146 H 70-105 MG/DL Calcium Level 9.5 8.5-10.1 MG/DL Corrected Calcium 9.4 8.5-10.1 MG/DL Magnesium Level 1.7 1.6-2.4 MG/DL Total Bilirubin 0.4 0.1-1.0 MG/DL Aspartate Amino Transf (AST/SGOT) 25 5-34 U/L Alanine Aminotransferase (ALT/SGPT) 29 0-55 U/L Alkaline Phosphatase 98 40-136 U/L Troponin I < 0.028 < 0.028 <0.028 NG/ML Total Protein 7.9 6.4-8.2 GM/DL Albumin 4.1 3.2-4.5 GM/DL My Orders Orders - ANGÉLICA PACHECO MD Ekg Tracing (06/19/22 14:53) Cbc With Automated Diff (06/19/22 15:14) Magnesium (06/19/22 15:14) Chest 1 View, Ap/Pa Only (06/19/22 15:14) Comprehensive Metabolic Panel (06/19/22 15:14) Protime With Inr (06/19/22 15:14) Partial Thromboplastin Time (06/19/22 15:14) O2 (06/19/22 15:14) Monitor-Rhythm Ecg Trace Only (06/19/22 15:14) Ed Iv/Invasive Line Start (06/19/22 15:14) Troponin I Jose (06/19/22 15:14) Aspirin Chewable Tablet (Baby Aspirin Ch (06/19/22 15:15) Ns Iv 1000 Ml (Sodium Chloride 0.9%) (06/19/22 16:15) Troponin I Jose (06/19/22 16:25) Medications Given in ED Vital Signs/I&O 06/19/22 06/19/22 14:40 18:03 Temp 37.0 Pulse 120 90 Resp 16 16 B/P (MAP) 149/79 (102) 124/59 Pulse Ox 97 97 Blood Pressure Mean: 102 Progress Progress Note : Time: 17:45 Progress Note Patient seen and evaluated by me. Evaluation today includes physical exam, CBC, Chem-12, coags, troponin x2, EKG and chest x-ray. History and physical facilitated by video plumbing hardware assembler as the patient is [place]-speaking only. Physical exam pertinent for well-developed well-nourished elderly female in no acute distress. Heart is regular, chest is nontender. Lungs are clear. Abdomen is soft and benign. No lower extremity edema. Nonfocal neurologic exam. Frontal diagnosis based on history and physical, ACS/non-STEMI. Labs and imaging reviewed by me, CBC is normal, chemistry is normal with a glucose of 146. Coags within normal limits. Troponin x2 undetectable. EKG normal sinus without ectopy or ST segment change. Chest x-ray interpreted by the radiologist as no acute abnormalities. Patient is treated with 324 mg of aspirin. She is also given a liter of fluids as she has had nothing to eat or drink today. As she has moderate anemia and in the emergency department she remains asymptomatic. Patient has been seen previously within the last 3 weeks for similar complaints and referred to cardiology. She states she is in discussion with her provider at [facility] for referral to cardiology but this has not been scheduled as of yet. She does have some risk for coronary artery disease as she is 62 years old, treated for hypertension and is a diabetic. Chest pain complaint was not consistent with cardiac etiology however the patient likely does need further evaluation by cardiology. She does need risk stratification and management of her chest pain. She is comfortable with going home she has no clinical or objective findings concerning for unstable angina or ACS at this time. Discharge instructions and follow-up recommendations are reviewed with the patient with the video plumbing hardware assembler. She is comfortable with the plan of care. All questions are sought and answered. Initial ECG Impression Date: Jun 19, 2022 Initial ECG Impression Time: 14:50 Initial ECG Rate: 109 Initial ECG Rhythm: Normal Sinus, S.Tach Initial ECG Intervals: Normal Initial ECG Impression: Normal Comment poor r wave progression over the precordium; no ST elevations or depressions. no ectopy; normal intervals Diagnostic Imaging Plain Films/CT/US/NM/MRI: chest Comments [facility]. [place], [place] NAME: EPTTY [facility] REC#: [id number] PT STATUS: REG ER : 1960 PHYSICIAN: ANGÉLICA PACHECO MD ADMIT DATE: 06/19/22/ER Signed Date of Exam:06/19/22 CHEST 1 VIEW, AP/PA ONLY INDICATION: Palpitations and chest pain. Frontal chest obtained at 3:49 p.m. and compared to 06/04/2022. Heart and mediastinal silhouette are normal in appearance. Lungs are clear. There is no pneumothorax or pleural fluid. IMPRESSION: No acute process in the chest. Dictated by: Dictated on workstation # [id number] Dict: 06/19/22 1550 Trans: 06/19/22 1603 [facility] [id number] Interpreted by: MICHELLE WILLOUGHBY MD Electronically signed by: MICHELLE WILLOUGHBY MD 06/19/22 1603 Departure Impression Primary Impression: Chest pain Qualified Codes: R07.9 - Chest pain, unspecified Additional Impression: Palpitations Disposition: 01 HOME, SELF-CARE Condition: Stable Departure-Patient Inst. Decision time for Depature: 17:43 Referrals: [facility] [employer] (PCP/Family) Primary Care Physician Patient Instructions: Palpitations ED, Chest Pain That Is Not Caused by the Heart (DC) Add. Discharge Instructions: contine con miguel medicamentos diarios segn lo prescrito. Oconnell trabajo de laboratorio y electrocardiograma no muestran ninguna evidencia de un ataque al corazn hoy. Si vuelve a sentir dolor, especialmente con nuseas, sudoracin o radiacin del dolor en el tank, la mandbula o la espalda, vuelva al Departamento de Emergencias para angela nueva evaluacin. Necesitar adonay a oconnell proveedor primario en [facility], [place], para que lo remita a un cardilogo. . continue your daily medications as prescribed. Your lab work and ekg do not show any evidence of a heart attack today. If you have a return of pain, especially with nausea, sweating or radiation of the pain into your neck/jaw or back, please come back to the Emergency Department for re-evaluation. You will need to see your primary provider at [facility], [place], for a referral to a heart doctor. Copy Copies To 1: ZEESHAN OLIVER KATHRYN M MD Jun 19, 2022 14:53
[2022-06-19] MEDS ORDERED: ASPIRIN 81 MG CHEW (CHILDREN'S ASA) PO ONE (15:15)
[2022-06-19 15:24] LABS: ALBUMIN 4.1 GM/DL (3.2-4.5); POTASSIUM 4.4 MMOL/L (3.6-5.0)
[2022-06-19 15:25] LABS: CALCIUM 9.5 MG/DL (8.5-10.1)
[2022-06-19 15:26] LABS: TOTAL PROTEIN 7.9 GM/DL (6.4-8.2)
[2022-06-19 15:28] LABS: BILIRUBIN,TOTAL 0.4 MG/DL (0.1-1.0)
[2022-06-19 15:29] LABS: INR 0.9 (0.8-1.4); PROTHROMBIN TIME PATIENT 12.5 SEC (12.2-14.7)
[2022-06-19 15:30] LABS: CREATININE SERUM 1.13 MG/DL (0.60-1.30)
[2022-06-19 15:32] LABS: MAGNESIUM 1.7 MG/DL (1.6-2.4)
[2022-06-19 15:48] LABS: BASOPHILS % (AUTO) 0 % (0-10); EOSINOPHILS # (AUTO) 0.1 10^3/uL (0.0-0.3); EOSINOPHILS % (AUTO) 2 % (0-10); HEMATOCRIT 39 % (35-52); HEMOGLOBIN 12.7 g/dL (11.5-16.0); LYMPHOCYTES # (AUTO) 0.4 10^3/uL (1.0-4.0); LYMPHOCYTES % (AUTO) 7 % (12-44); MEAN CORPUSCULAR HEMOGLOBIN 27 pg (25-34); MEAN CORPUSCULAR HGB CONC 33 g/dL (32-36); MEAN CORPUSCULAR VOLUME 82 fL (80-99); MEAN PLATELET VOLUME 10.9 fL (9.0-12.2); MONOCYTES # (AUTO) 0.2 10^3/uL (0.0-1.0); MONOCYTES % (AUTO) 4 % (0-12); NEUTROPHILS # (AUTO) 5.3 10^3/uL (1.8-7.8); NEUTROPHILS % (AUTO) 86 % (42-75); PLATELET COUNT 218 10^3/uL (130-400); WHITE BLOOD COUNT 6.2 10^3/uL (4.3-11.0)
--- NOTE | 2022-06-19 15:51 | Diagnostic Imaging Report ---
INDICATION: Palpitations and chest pain. Frontal chest obtained at 3:49 p.m. and compared to 06/04/2022. Heart and mediastinal silhouette are normal in appearance. Lungs are clear. There is no pneumothorax or pleural fluid. IMPRESSION: No acute process in the chest. Dictated by: Dictated on workstation # [id number]
[2022-06-19] MEDS ORDERED: NS IV 1000 ML 1,000 ML IV SCH (16:15)
[2022-06-19 18:03] VITALS: BP 124/59
== END 2022-06-19 18:04 | disposition home or self-care (01) ==
LOC: EDUNIT# 14:33 → ER 14:36
DX: R07.89 Other chest pain (principal); R00.2 Palpitations; E11.9 Type 2 diabetes mellitus without complications; I10 Essential (primary) hypertension
CPT/HCPCS: 36415; 71045; 80053; 83735; 84484; 85025; 85610; 85730; 93005; 93041

== ENCOUNTER → 2022-07-31 | Outpatient (CLI) | payer MEDICAID | LOC: CARD 08:54 | PROVIDERS: ATTEND Nurse Practitioner Family | DX: R00.2 Palpitations (principal) | CPT/HCPCS: 93225; 93226 ==

== ENCOUNTER 2022-08-27 13:22 | Emergency (ER) | payer MEDICAID ==
[~2022-08-27] VITALS: Ht 158 cm; Wt 106.0 kg
--- NOTE | 2022-08-27 13:50 | ED Head Injury ---
General Chief Complaint: Head/Cervical Problems Stated Complaint: FALL | BUMP ON HEAD Nursing Triage Note: C/O HEAD AND NECK PAIN AFTER A FALL YESTERDAY WHILE AT THE EYE DOCTOR, [facility], HITTING THE BACK OF HER HEAD AND NECK ON A ROLLING CHAIR. DENIES LOC. Source: patient, family Exam Limitations: language barrier History of Present Illness Date Seen by Provider: Aug 27, 2022 Time Seen by Provider: 13:41 Initial Comments 62-year-old Kiswahili-speaking female presents to the ER for a head injury which occurred yesterday. She was sitting on a rolling chair which went out from under her, she fell backwards and hit the back of her head. She is complaining of pain at the location of the hematoma as well as neck pain. States she has taken Tylenol for pain, but it has not helped. Denies dizziness, vomiting, loss of consciousness. Family reports she has been acting normal. She does take aspirin. Allergies and Home Medications Allergies Coded Allergies: metformin HCl (Verified Allergy, Unknown, 05/01/11) Patient Home Medication List Home Medication List Reviewed: Yes Aspirin (Aspir 81) 81 Mg Tablet.dr, 81 MG PO DAILY, (Reported) Entered as Reported by: VERONICA SINGH on 11/24/18 1008 Budesonide/Formoterol Fumarate (Symbicort 160-4.5 Mcg Inhaler) 10.2 Gm Hfa.aer.ad, 2 PUFF IH BID, (Reported) Entered as Reported by: VERONICA SINGH on 11/24/18 1008 Docusate Sodium (Colace) 100 Mg Capsule, 100 MG PO BID Prescribed by: DAVID JAMISON on 12/01/18 1320 Glimepiride (Glimepiride) 1 Mg Tablet, 1 MG PO DAILY, (Reported) Entered as Reported by: VERONICA SINGH on 11/24/18 1008 Hydrocodone Bit/Acetaminophen (Lortab 5 Mg Tablet) 1 Tab Tab, 1-2 TAB PO Q6H PRN for PAIN-MODERATE Prescribed by: DAVID JAMISON on 12/01/18 1320 Lisinopril/Hydrochlorothiazide (Lisinopril-Hctz 20-25 mg Tab) 1 Each Tablet, 1 EACH PO DAILY, (Reported) Entered as Reported by: VERONICA SINGH on 11/24/18 1008 Pioglitazone HCl (Pioglitazone HCl) 30 Mg Tablet, 30 MG PO DAILY, (Reported) Entered as Reported by: VERONICA SINGH on 11/24/18 1008 Review of Systems Review of Systems Constitutional: see HPI Past Mnjpctr-Vbzywy-Mdbaif Hx Patient Social History Tobacco Use?: No Use of E-Cig and/or Vaping dev: No Substance use?: No Alcohol Use?: No Pt feels they are or have been: No Immunizations Up To Date Influenza Vaccine Up-to-Date: Yes; Up-to-Date First/Initial COVID19 Vaccinat: "2 SHOTS" Second COVID19 Vaccination Griffin: UNKNOWN Seasonal Allergies Seasonal Allergies: No Past Medical History Surgery/Hospitalization HX: DIABETES, HTN ABDOMINAL HERNIA, TOTAL HYSTERECTOMY, Surgeries: Yes Gallbladder, Hysterectomy, Tubal Ligation Respiratory: Yes Asthma Cardiac: Yes High Cholesterol, Hypertension Neurological: No Reproductive Disorders: Yes (UTERINE MASS) Sexually Transmitted Disease: No Genitourinary: No Gastrointestinal: Yes Abdominal Hernia Musculoskeletal: Yes (ARTHRITIS) Endocrine: Yes Diabetes, Non-Insulin dep HEENT: No Cancer: No Psychosocial: No Integumentary: No Blood Disorders: No Physical Exam Vital Signs Vital Signs - First Documented 08/27/22 13:31 Temp 36.8 Pulse 59 Resp 18 B/P (MAP) 136/79 (98) Pulse Ox 98 O2 Delivery Room Air Capillary Refill : Less Than 3 Seconds Height, Weight, BMI Height: '" Weight: 218lbs. oz. 98.701162ei; 42.00 BMI Method: General Appearance: WD/WN, no apparent distress HEENT: PERRL/EOMI, TMs normal, other (Small hematoma to occipital area, tender to palpation) Neck: full range of motion, supple, normal inspection; No tender lateral; tender midline Cardiovascular: regular rate, rhythm Respiratory: lungs clear, normal breath sounds, no respiratory distress Extremities: normal range of motion, normal inspection Crainal Nerves: normal hearing, normal speech, PERRL Motor/Sensory: no motor deficit, no sensory deficit Skin: normal color, warm/dry Progress/Results/Core Measures Results/Orders My Orders Orders - RAFAEL HESS APRN Ct Head/Cervical Spine Wo (08/27/22 13:49) Vital Signs/I&O 08/27/22 08/27/22 13:31 15:02 Temp 36.8 Pulse 59 59 Resp 18 18 B/P (MAP) 136/79 (98) 136/79 Pulse Ox 98 98 O2 Delivery Room Air Room Air Blood Pressure Mean: 98 Progress Progress Note : Progress Note Patient seen and evaluated, resting comfortably in recliner, no acute distress. Based on exam and symptoms, CT of head and neck ordered. 1455 CT reviewed. Negative for acute intracranial abnormality, negative for acute fracture or dislocation of the C-spine. Results discussed with patient. Patient informed that she may continue to have pain for the next couple days, she may use ice packs, or take Tylenol as needed for pain. Patient is r equesting the report of her CT, I will provide this with her discharge instructions. Discharge instructions and return precautions provided. Departure Impression Primary Impression: Injury of head and neck Qualified Codes: S09.90XA - Unspecified injury of head, initial encounter; S19.9XXA - Unspecified injury of neck, initial encounter Disposition: HOME, SELF-CARE Condition: Stable Departure-Patient Inst. Decision time for Depature: 14:56 Referrals: REX ASKEW APRN (PCP/Family) Primary Care Physician Patient Instructions: Minor Head Injury (DC) Add. Discharge Instructions: You may continue to use ice packs as needed for pain. You may take 1000 mg of Tylenol every 8 hours as needed for pain. Follow-up with your primary care provider. Return for worsening or uncontrolled pain, vision changes, recurrent vomiting, difficulty with normal activities, abnormal behavior, difficulty walking, numbness, weakness, or any other new, concerning, or worsening symptoms. All discharge instructions reviewed with patient and/or family. Voiced u nderstanding. RAFAEL HESS APRN Aug 27, 2022 13:50
--- NOTE | 2022-08-27 14:23 | Diagnostic Imaging Report ---
PROCEDURE: CT head and CT cervical spine without contrast. TECHNIQUE: Multiple contiguous axial images were obtained through the brain and cervical spine without the use of intravenous contrast. Sagittal and coronal reformations through the cervical spine were then performed. Auto Exposure Controls were utilized during the CT exam to meet ALARA standards for radiation dose reduction. INDICATION: Neck pain and headache after fall. COMPARISON: None. Findings: The harry-white matter differentiation is normal. No mass effect or midline shift. The ventricles are normal in size and configuration. Basilar cisterns are patent. There are no intra- or extra-axial fluid collections. There is no intracranial hemorrhage. The alignment of the cervical spine is normal. No fracture is seen. Vertebral body heights are normal. The craniocervical junction is normal. There is no degenerative disease in the cervical spine. There is no spinal canal stenosis. No soft tissue abnormality is seen in the neck. Limited views of the superior thorax are normal. IMPRESSION: 1. No acute intracranial abnormality. 2. No cervical spine fracture. Dictated by: Dictated on workstation # [id number]
[2022-08-27 15:02] VITALS: BP 136/79
== END 2022-08-27 15:02 | disposition home or self-care (01) ==
LOC: EDUNIT# 13:22 → ER 13:24
DX: S09.90XA Unspecified injury of head, initial encounter (principal); S19.9XXA Unspecified injury of neck, initial encounter; S00.03XA Contusion of scalp, initial encounter; Z79.82 Long term (current) use of aspirin; W07.XXXA Fall from chair, initial encounter; W22.8XXA Striking against or struck by other objects, initial encounter
CPT/HCPCS: 70450; 72125

== ENCOUNTER → 2022-11-09 | Emergency (ER) | payer MEDICAID ==
[~2022-11-09] VITALS: Ht 157 cm; Wt 104.0 kg
[~2022-11-09] MED LIST changes: +LIDOCAINE 4% PATCH TOP STA; +NAPROXEN 250 MG TABLET PO ONE; +PRD50T PO
[2022-11-09 23:45] VITALS: BP 156/73
--- NOTE | 2022-11-10 00:44 | ED Back Pain ---
General Chief Complaint: Back Problems Stated Complaint: RT HIP PX Nursing Triage Note: PATIENT COMPLAINT OF LEFT HIP PAIN FOR THREE DAYS. TYLENOL FOR PAIN History of Present Illness Date Seen by Provider: Nov 10, 2022 Time Seen by Provider: 00:31 Initial Comments Patient is a 62-year-old slovenian speaking female who presents to the emergency department with a chief complaint of right posterior hip pain for 3 days. Family member present at the bedside to interpret. She states it started in the morning 3 days ago when she was getting out of bed. Denies any trauma, falls, heavy lifting or twisting injuries. She states the pain radiates from the upper posterior hip into the right groin and the top of the right thigh. She has taken Tylenol without significant relief. Denies any numbness or weakness to the right lower extremity. She denies dysuria, urgency or frequency. She has had previous bladder surgery and is concerned about possible infection. She denies rashes. No diarrhea. Movement makes the pain worse. Nothing seems to make it any better. Timing/Duration: 2-3 Days Severity: Moderate Pain/Injury Location: Back (right posterior hip) Modifying Factors: Improves With Immobilization; Worse With Movement Associated Symptoms: muscle spasms; No numbness in legs/feet, No tingling in legs/feet, No sensory/motor loss; lower back pain (right side) Allergies and Home Medications Allergies Coded Allergies: metformin HCl (Verified Allergy, Unknown, 05/01/11) Patient Home Medication List Home Medication List Reviewed: Yes Aspirin (Aspir 81) 81 Mg Tablet.dr, 81 MG PO DAILY, (Reported) Entered as Reported by: VERONICA SINGH on 11/24/18 1008 Budesonide/Formoterol Fumarate (Symbicort 160-4.5 Mcg Inhaler) 10.2 Gm Hfa.aer.ad, 2 PUFF IH BID, (Reported) Entered as Reported by: VERONICA SINGH on 11/24/18 1008 Docusate Sodium (Colace) 100 Mg Capsule, 100 MG PO BID Prescribed by: DAVID JAMISON on 12/01/18 1320 Glimepiride (Glimepiride) 1 Mg Tablet, 1 MG PO DAILY, (Reported) Entered as Reported by: VERONICA SINGH on 11/24/18 1008 Hydrocodone Bit/Acetaminophen (Lortab 5 Mg Tablet) 1 Tab Tab, 1-2 TAB PO Q6H PRN for PAIN-MODERATE Prescribed by: DAVID JAMISON on 12/01/18 1320 Lisinopril/Hydrochlorothiazide (Lisinopril-Hctz 20-25 mg Tab) 1 Each Tablet, 1 EACH PO DAILY, (Reported) Entered as Reported by: VERONICA SINGH on 11/24/18 1008 Pioglitazone HCl (Pioglitazone HCl) 30 Mg Tablet, 30 MG PO DAILY, (Reported) Entered as Reported by: VERONICA SINGH on 11/24/18 100 Prednisone (Prednisone) 50 Mg Tab, 50 MG PO DAILY Prescribed by: ANGÉLICA PACHECO on 11/10/22 0210 Review of Systems Constitutional: see HPI Gastrointestinal: no symptoms reported Genitourinary: no symptoms reported : No Musculoskeletal: back pain (right low back/posterior hip), joint pain (hip on the right) Skin: no symptoms reported Psychiatric/Neurological: No Symptoms Reported All Other Systems Reviewed Negative Unless Noted: Yes Past Pfykqvs-Dapkqi-Gqskcg Hx Immunizations Up To Date Influenza Vaccine Up-to-Date: Yes; Up-to-Date First/Initial COVID19 Vaccinat: "2 SHOTS" Second COVID19 Vaccination Griffin: "2 SHOTS" Third COVID19 Vaccination Date: "2 SHOTS" Seasonal Allergies Seasonal Allergies: No Past Medical History Surgery/Hospitalization HX: DIABETES, HTN ABDOMINAL HERNIA, TOTAL HYSTERECTOMY, Surgeries: Yes Gallbladder, Hysterectomy, Tubal Ligation Respiratory: Yes Asthma Cardiac: Yes High Cholesterol, Hypertension Neurological: No Reproductive Disorders: Yes (UTERINE MASS) Sexually Transmitted Disease: No Genitourinary: No Gastrointestinal: Yes Abdominal Hernia Musculoskeletal: Yes (ARTHRITIS) Endocrine: Yes Diabetes, Non-Insulin dep HEENT: No Cancer: No Psychosocial: No Integumentary: No Blood Disorders: No Physical Exam Vital Signs Vital Signs - First Documented 11/09/22 23:45 Temp 36.7 Pulse 86 Resp 20 B/P (MAP) 156/73 (100) Pulse Ox 100 O2 Delivery Room Air Capillary Refill : Less Than 3 Seconds Height, Weight, BMI Height: '" Weight: 218lbs. oz. 98.155850zb; 42.00 BMI Method: General Appearance: No Apparent Distress, WD/WN, Obese HEENT: PERRL/EOMI Cardiovascular: Regular Rate, Rhythm, Normal Peripheral Pulses Respiratory: Lungs Clear, Normal Breath Sounds, No Accessory Muscle Use, No Respiratory Distress Gastrointestinal: Normal Bowel Sounds, Non Tender, Soft Back: Normal Inspection, No CVA Tenderness, No Vertebral Tenderness Extremity: Normal Capillary Refill, Normal Inspection, Normal Range of Motion, Other (point tenderness to palpation to the right posterior superior ilic crest/SI joint. no over lying erythema or rash) Neurologic/Psychiatric: Alert, Oriented x3, No Motor/Sensory Deficits, Normal Mood/Affect, heel buffer II-XII Norm as Tested; No Motor Weakness, No Sensory Deficit Skin: Normal Color, Warm/Dry Progress/Results/Core Measures Results/Orders Lab Results Laboratory Tests Test 11/10/22 01:06 11/10/22 01:09 Range/Units Glucometer 116 H 70-110 MG/DL Urine Color YELLOW Urine Clarity CLEAR Urine pH 5.5 5-9 Urine Specific [place] <=1.005 1.016-1.022 Urine Protein NEGATIVE NEGATIVE Urine Glucose (UA) NEGATIVE NEGATIVE Urine Ketones NEGATIVE NEGATIVE Urine Nitrite NEGATIVE NEGATIVE Urine Bilirubin NEGATIVE NEGATIVE Urine Urobilinogen 0.2 < = 1.0 MG/DL Urine Leukocyte Esterase 1+ H NEGATIVE Urine RBC (Auto) NEGATIVE NEGATIVE Urine RBC NONE /HPF Urine WBC 0-2 /HPF Urine Squamous Epithelial Cells RARE /HPF Urine Crystals NONE /LPF Urine Bacteria NEGATIVE /HPF Urine Casts NONE /LPF Urine Mucus NEGATIVE /LPF Urine Culture Indicated NO My Orders Orders - ANGÉLICA PACHECO MD Ua Culture If Indicated (11/10/22 00:40) Accucheck Stat ONCE (11/10/22 00:40) Lidocaine 4% Patch (Salonpas 4% Patch) (11/10/22 00:44) Naproxen Tablet (Naproxen Tablet) (11/10/22 00:45) Medications Given in ED Current Medications Medications Dose Ordered Sig/Koko Route Start Time Stop Time Status Last Admin Dose Admin Naproxen 250 mg ONCE ONCE PO 11/10/22 00:45 11/10/22 00:46 DC 11/10/22 01:05 250 MG Vital Signs/I&O 11/09/22 23:45 Temp 36.7 Pulse 86 Resp 20 B/P (MAP) 156/73 (100) Pulse Ox 100 O2 Delivery Room Air Blood Pressure Mean: 100 Progress Progress Note : Time: 02:17 Progress Note Patient seen and evaluated by me. Evaluation today includes physical exam. Pertinent physical exam findings well-developed well-nourished obese female in no acute distress. She has point tenderness to the SI joint on the right no overlying rashes, erythema. She has no weakness to the lower extremities bilaterally. Distal neurovascularly intact. No midline spine tenderness. Differential diagnosis includes sacroiliitis, shingles Patient is treated in the emergency department with a 4% lidocaine patch overlying the area of tenderness. She is also given 250 mg of naproxen. Patient is reassessed after these medications and states that she has some improvement of pain but it is not completely alleviated. We will send the patient home on prednisone 50 mg tablets x5. Advised that she check her blood sugars more frequently on the steroids and explained that steroids can increase her sugars. She is encouraged to continue Tylenol every 6 hours. She is advised to apply heat to the area. She is advised to contact her primary care provider for a follow-up appointment. Return precautions provided in both verbal and written format. Patient has no concerning findings at this time for viral infection/shingles. Her family member at the bedside provides interpretation to facilitate understanding of the discharge instructions. All questions are sought and answered. Patient is improved at discharge Departure Impression Primary Impression: Sacro-iliac pain Disposition: 01 HOME, SELF-CARE Condition: Improved Departure-Patient Inst. Decision time for Depature: 02:06 Referrals: REX ASKEW APRN (PCP/Family) Primary Care Physician Patient Instructions: Sacroiliac Joint Pain Add. Discharge Instructions: You can use over the counter Lidocaine Patches (available at the pharmacy [id number]) for pain. Please follow packaging instructions. Take 2 tylenol every 6 hours as needed for pain. I have sent a prescription for prednisone 50mg tablets to the pharmacy. You can take these once a day for 5 days to also help with pain. Take it in the morning. The prednisone may increase your blood sugar, check it during the day and watch your sugar intake. If you have any worsening pain, especially with redness/rash, pain down the leg to the foot, numbness or any other emergent, concerning symptoms - please return to the Emergency Department for re-evaluation. Please call the clinic for a follow up appointment. Puede usar parches de lidocana de venta shaquille (disponibles en la farmacia sin receta) para el dolor. Siga las instrucciones del embalaje. [place] 2 Tylenol cada 6 horas segn sea necesario para el dolor. He enviado angela receta de comprimidos de prednisona de 50 mg a la farmacia. Puede tomarlos angela vez al da amie 5 mondragon para ayudar tambin con el dolor. Tmalo por la maana. La prednisona puede aumentar huang nivel de azcar en kelechi, controlelo amie el da y vigile huang consumo de azcar. Si tiene algn dolor que empeora, especialmente con enrojecimiento/sarpullido, dolor desde la pierna hasta el pie, entumecimiento o cualquier otro sntoma emergente, regrese al [facility]artamento de Emergencias para angela nueva evaluacin. Llame a la clnica para programar angela ruel de seguimiento. Scripts Prednisone (Prednisone) 50 Mg Tab 50 MG PO DAILY, #5 TAB Prov: ANGÉLICA PACHECO MD 11/10/22 Copy Copies To 1: ZEESHAN OLIVER KATHRYN M MD Nov 10, 2022 00:44
[2022-11-10 01:23] LABS: CLARITY,URINE CLEAR; COLOR,URINE YELLOW; PH,URINE 5.5 (5-9)
[2022-11-10 01:24] LABS: BACTERIA,URINE NEGATIVE /HPF; BILIRUBIN,URINE NEGATIVE (NEGATIVE); GLUCOSE, URINE (UA) NEGATIVE (NEGATIVE); KETONES,URINE NEGATIVE (NEGATIVE); LEUKOCYTE ESTERASE ,URINE 1+ (NEGATIVE); NITRITE,URINE NEGATIVE (NEGATIVE); PROTEIN,URINE NEGATIVE (NEGATIVE); SQUAMOUS EPITHELIAL CELL,UR RARE /HPF; WBC,URINE 0-2 /HPF
== END ==
LOC: EDUNIT# 23:28 → ER 23:32
DX: M53.3 Sacrococcygeal disorders, not elsewhere classified (principal); E66.9 Obesity, unspecified; Z68.41 Body mass index [BMI] 40.0-44.9, adult